=== PATIENT | female | born 1985 | race Caucasian/White ===

== ENCOUNTER 2021-05-02 08:15 | Inpatient (IN) | payer OTHER ==
[2021-05-02] MEDS ORDERED: ONDANSETRON 4 MG/2 ML VIAL IVPUSH PRN (09:04)
[2021-05-02] MEDS ORDERED: morphine SULFATE/PF 1 MG/2 ML (2cc Syringe - QUVA) EP ONE (09:04)
[2021-05-02 10:11] VITALS: BMI 25.9
[2021-05-02] MEDS ORDERED: CITRIC ACID/SODIUM CITRATE 30 ML UNIT-DOSE CUP PO ONE (11:23)
[2021-05-02] MEDS ORDERED: ELECTROLYTE-148 SOLN 1,000 ML IV SCH (11:30)
[2021-05-02] MEDS ORDERED: morphine SULFATE (PF) 1 MG/2 ML SYRINGE ONE (11:42)
[2021-05-02] MEDS ORDERED: ceFAZolin SODIUM 1 GM VIAL ONE (11:42)
[2021-05-02] MEDS ORDERED: PHENYLEPHRINE HCL 10 MG/1 ML SINGLE DOSE VIAL ONE (11:55)
[2021-05-02] MEDS ORDERED: OXYTOCIN 10 UNIT/ML 10ML MDV ONE (12:08)
[2021-05-02] MEDS ORDERED: MIDAZOLAM HCL 2 MG/2 ML SINGLE DOSE VIAL ONE (12:41)
[2021-05-02] MEDS ORDERED: GENTAMICIN SO4 80 MG/2 ML VIAL ONE ×2 (12:55→12:57)
[2021-05-02] MEDS ORDERED: ONDANSETRON 4 MG/2 ML VIAL ONE (13:16)
[2021-05-02] MEDS ORDERED: KETOROLAC TROMETHAMINE 30 MG/1 ML VIAL ONE (13:16)
[2021-05-02 13:18] LABS: CORD HCO3 24.9 mmHg (20-29); CORD PCO2 50.3 mmHg (30-78); CORD pH 7.312 (7.14-7.44)
[2021-05-02 13:22] LABS: CORD HCO3 25.8 mmHg (20-29); CORD PCO2 68.1 mmHg (30-78); CORD pH 7.197 (7.14-7.44)
[2021-05-02] MEDS ORDERED: IBUPROFEN 800 MG/8 ML IJ IVPB PRN (13:44)
[2021-05-02] MEDS ORDERED: oxyCODONE HCL 5 MG TABLET PO PRN (13:44)
[2021-05-02] MEDS ORDERED: ONDANSETRON 4 MG/2 ML VIAL IVPB PRN (13:44)
[2021-05-02] MEDS ORDERED: SENNOSIDES/DOCUSATE COMBO (SENNA PLUS) TABLET (UD) PO PRN (13:44)
[2021-05-02] MEDS ORDERED: ACETAMINOPHEN 1000 MG/100 ML VIAL IVPB PRN (13:44)
[2021-05-02] MEDS ORDERED: OXYTOCIN 20 UNITS in 0.9% NS 20 UNIT/1,000 ML INFUS.BAG IV SCH (13:45)
[2021-05-02] MEDS ORDERED: CEFTRIAXONE 1,000 MG in DEXTROSE 5%-WATER - 50 ML IVPB ONE (13:56)
[2021-05-02] MEDS ORDERED: OXYTOCIN 20 UNITS in 0.9% NS 20 UNIT/1,000 ML INFUS.BAG IV ONE (14:30)
[2021-05-03 08:33] LABS: BASO % 0.2 % (0-2.0); EOS % 0.3 % (0-4.5); HEMATOCRIT 31.9 % (32.4-45.2); HEMOGLOBIN 10.8 GM/dL (10.7-15.3); LYMPH % 8.7 % (8-40); MCH 29.7 pg (25.7-33.7); MCHC 33.8 g/dl (32.0-36.0); MEAN CELL VOLUME 87.9 fl (80-96); MONO % 4.6 % (3.8-10.2); NEUT % 86.2 % (42.8-82.8); PLATELET COUNT 113 10^3/uL (134-434); RBC 3.63 M/mm3 (3.60-5.2); RDW 13.5 % (11.6-15.6); WHITE BLOOD COUNT 15.7 K/mm3 (4.0-10.0)
[2021-05-03] MEDS ORDERED: DEXTROSE 5%-WATER - 50 ML IVPB ONE (08:47)
[2021-05-03] MEDS ORDERED: cefTRIAXone SODIUM 1 GM VIAL ONE (08:47)
[2021-05-03] MEDS ORDERED: CEFTRIAXONE 1 GM in DEXTROSE 5%-WATER - 50 ML IVPB ONE (10:00)
[2021-05-03] MEDS: SIMETHICONE 80 MG TAB.CHEW (FP) PO PRN (10:13)
[2021-05-03] MEDS: ACETAMINOPHEN 325 MG TABLET (FP) PO PRN (13:27)
[2021-05-03] MEDS ORDERED: BISACODYL 10 MG SUPP.RECT RC PRN (13:44)
[2021-05-03] MEDS: IBUPROFEN 600 MG TABLET (FP) PO PRN (18:16)
[2021-05-04] MEDS: ACETAMINOPHEN 325 MG TABLET (FP) PO PRN (12:58)
[2021-05-04] MEDS: IBUPROFEN 600 MG TABLET (FP) PO PRN (16:31)
[2021-05-05] MEDS ORDERED: PENICILLIN G BENZATHINE 2,400,000 UNIT/4 ML PFS IM ONE (10:22)
[2021-05-05 12:51] LABS: HIV INTERPRETATION NEGATIVE (NEGATIVE)
[2021-05-05] MEDS: IBUPROFEN 600 MG TABLET (FP) PO PRN (21:54)
[2021-05-05] MEDS: SIMETHICONE 80 MG TAB.CHEW (FP) PO PRN (21:55)
[2021-05-06] MEDS: SIMETHICONE 80 MG TAB.CHEW (FP) PO PRN (10:49)
[2021-05-06 11:13] VITALS: BP 98/66; PULSE 79; TEMP 97.8
== END 2021-05-06 18:00 | disposition home or self-care (01) | DRG 540 ==
LOC: JLDR 08:15 → J3W 15:20
PROVIDERS: ADMIT Family Medicine; ATTEND Family Medicine
PROC: 10D00Z1 Extraction of Products of Conception, Low, Open Approach (ICD-10-PCS; principal; 2021-05-02)
PROC: 0TQB0ZZ Repair Bladder, Open Approach (ICD-10-PCS; 2021-05-02)
DX: O34.211 Maternal care for low transverse scar from previous cesarean delivery (principal); N85.8 Other specified noninflammatory disorders of uterus; O71.5 Other obstetric injury to pelvic organs; O98.12 Syphilis complicating childbirth; Z3A.41 41 weeks gestation of pregnancy; Z37.0 Single live birth
CPT/HCPCS: 36415; 36600; 82803; 85025; 86780; 86850; 86900; 86901; 87389; 88307-TC

== ENCOUNTER → 2021-06-13 | Day surgery (SDC) | payer OTHER | END | disposition home or self-care (01) | LOC: JRADIR 11:26 | PROVIDERS: ATTEND Urology | PROC: BT10YZZ Fluoroscopy of Bladder using Other Contrast (ICD-10-PCS; principal; 2021-06-13) | DX: Z09 Encounter for follow-up examination after completed treatment for conditions other than malignant neoplasm (principal) | CPT/HCPCS: 51600; 74430-TC-FY ==